=== PATIENT | male | born 1980 | race Caucasian/White ===

== ENCOUNTER 2017-01-04 12:04 | Inpatient (IN) | payer OTHER ==
[~2017-01-04] VITALS: Ht 170.2 cm; Wt 80.7 kg
[~2017-01-04 12:04] MED LIST: AMLODIPINE BESY10 MG PO; HYDROCHLOROTH12.5 M3 PO; KLONOPIN0.5 M1 PO; LEXAPRO10 MG PO; LEXAPRO20 MG PO; LO-DOSE ASPIRIN81 M2 PO; LOPRESSOR50 MG PO; NITROSTAT0.4 MG SL; WELLBUTRIN SR150 MG PO
[2017-01-04] MEDS ORDERED: TIZANIDINE HCL4 MG PO (12:50)
[2017-01-04 14:41] LABS: EOSINOPHIL (%) 0.7 % (0-5); EOSINOPHIL COUNT 0.1 K/uL (0-0.3); HEMATOCRIT 42.6 % (38.0-50.0); IMMATURE GRANULOCYTE (%) 0.4 % (0.0-0.7); INSTRUMENT ABS NEUTROPHIL CT 6.1 K/uL; LYMPHOCYTE COUNT 2.3 K/uL (1.0-2.8); MCH 31.4 PG (29.0-34.0); MCV 92.2 FL (86-99); MEAN PLAT.VOLUME 9.5 uM^3 (9.0-12.4); MONOCYTE (%) 6.2 % (3-12); MONOCYTE COUNT 0.6 K/uL (0-0.8); NEUTROPHIL (%) 66.8 % (45-76); NEUTROPHIL COUNT 6.1 K/uL (1.8-6.4); PLATELET COUNT 224 K/uL (156-360); RBC DIS.WIDTH-CV 13.3 % (11.8-14.6); RBC DIS.WIDTH-SD 45.2 % (39-53); RED BLOOD COUNT 4.62 M/uL (4.00-5.50); WHITE BLOOD COUNT 9.1 K/uL (4.1-10.2)
[2017-01-04 14:48] LABS: CHLORIDE 107 mEq/L (99-109); POTASSIUM 3.7 mEq/L (3.7-5.4); SODIUM 139 mEq/L (136-147)
[2017-01-04 14:51] LABS: GLUCOSE 94 mg/dL (70-99)
[2017-01-04 14:52] LABS: ANION GAP 9 MEQ/L (2-14)
[2017-01-04 14:53] LABS: TOTAL BILIRUBIN 0.6 mg/dL (0.0-1.0)
[2017-01-04 14:54] LABS: GFR ESTIMATE (CALCULATED) > 59 mL/min/; SERUM ETHYL ALCOHOL < 10 mg/dL
[2017-01-04 14:55] LABS: ALKALINE PHOSPHATASE 66 IU/L (3-129)
[2017-01-04 14:56] LABS: UREA NITROGEN (BUN) 9 mg/dL (9-23)
[2017-01-04 14:58] LABS: SALICYLATE < 5.0 MG/DL (15-30)
[2017-01-04 15:22] LABS: ADD MIUA? YES; BILIRUBIN NEGATIVE; BLOOD NEGATIVE; COLOR YELLOW ((YELLOW)); GLUCOSE (STRIP) NEGATIVE; KETONES NEGATIVE; LEUKOCYTES SMALL; NITRITE NEGATIVE; PROTEIN (STRIP) NEGATIVE; UROBILINOGEN 0.2 MG/DL (0.2-1.0)
[2017-01-04 15:48] LABS: AMPHETAMINE NEGATIVE (500 ng/mL); BACTERIA NONE SEEN /HPF; BARBITURATES NEGATIVE (200 ng/mL); BENZODIAZEPINES NEGATIVE (150 ng/mL); COCAINE NEGATIVE (150 ng/mL); EPITHELIAL CELLS RARE /HPF; METHADONE NEGATIVE (200 ng/mL); METHAMPHETAMINE NEGATIVE (500 ng/mL); MUCUS TRACE /LPF; OPIATES (MORPHINE) NEGATIVE (100 ng/mL); OXYCODONE NEGATIVE (100 ng/mL); PHENCYCLIDINE NEGATIVE (25 ng/mL); PROPOXYPHENE NEGATIVE (300 ng/mL); RED BLOOD CELLS 0-5 /HPF (0-5); THC CANNABINOIDS NEGATIVE (50 ng/mL); TRICYCLIC ANTIDEPRESSANTS NEGATIVE (300 ng/mL)
[2017-01-04 15:49] LABS: INTERNAL CONTROLS VALID? YES
[2017-01-04] MEDS ORDERED: DICLOFENAC SODI75 MG PO (17:22)
[2017-01-04] MEDS ORDERED: NARCAN4 MG NS (17:22)
[2017-01-05 07:34] VITALS: BP 130/86
[2017-01-05 15:28] VITALS: BP 113/77
[2017-01-06 07:32] VITALS: BP 113/69
== END 2017-01-06 11:30 | disposition home or self-care (01) | DRG 881 ==
LOC: EME 12:04 → 1WEST 15:23 → EDOF 15:23 → 1WEST 17:52
PROVIDERS: Emergency Medicine
DX: F32.9 Major depressive disorder, single episode, unspecified (principal); F11.10 Opioid abuse, uncomplicated; I10 Essential (primary) hypertension; F41.9 Anxiety disorder, unspecified
CPT/HCPCS: 71010; 80053; 81003; 85025; 97165 GO; 99281; 99285; G0480; J7030

== ENCOUNTER 2017-01-08 12:03 | Emergency (ER) | payer BC ==
[~2017-01-08] VITALS: Ht 170.2 cm; Wt 83.8 kg
[~2017-01-08 12:03] MED LIST changes: +DICLOFENAC SODI75 MG PO; +NARCAN4 MG NS; +TIZANIDINE HCL4 MG PO
[2017-01-08 13:29] LABS: ADD MIUA? NO; BILIRUBIN NEGATIVE; BLOOD NEGATIVE; COLOR YELLOW ((YELLOW)); GLUCOSE (STRIP) NEGATIVE; KETONES NEGATIVE; LEUKOCYTES NEGATIVE; NITRITE NEGATIVE; PROTEIN (STRIP) NEGATIVE; SPECIFIC GRAVITY 1.016 (1.000-1.030); UCUL ADDED? NO; UROBILINOGEN 0.2 MG/DL (0.2-1.0)
[2017-01-08 13:40] LABS: AMPHETAMINE NEGATIVE (500 ng/mL); BARBITURATES NEGATIVE (200 ng/mL); BENZODIAZEPINES NEGATIVE (150 ng/mL); COCAINE NEGATIVE (150 ng/mL); INTERNAL CONTROLS VALID? YES; METHADONE NEGATIVE (200 ng/mL); METHAMPHETAMINE NEGATIVE (500 ng/mL); OPIATES (MORPHINE) NEGATIVE (100 ng/mL); OXYCODONE NEGATIVE (100 ng/mL); PHENCYCLIDINE NEGATIVE (25 ng/mL); PROPOXYPHENE NEGATIVE (300 ng/mL); THC CANNABINOIDS PRESUMPTIVE POSITIVE (50 ng/mL); TRICYCLIC ANTIDEPRESSANTS NEGATIVE (300 ng/mL)
[2017-01-08 13:41] LABS: ADD MEDTOX COMMENT Y
[2017-01-08 14:09] LABS: EOSINOPHIL (%) 1.9 % (0-5); EOSINOPHIL COUNT 0.2 K/uL (0-0.3); HEMATOCRIT 43.3 % (38.0-50.0); IMMATURE GRANULOCYTE (%) 0.3 % (0.0-0.7); INSTRUMENT ABS NEUTROPHIL CT 4.3 K/uL; LYMPHOCYTE COUNT 2.4 K/uL (1.0-2.8); MCH 31.4 PG (29.0-34.0); MCHC 33.9 G/DL (30.0-36.0); MCV 92.5 FL (86-99); MEAN PLAT.VOLUME 9.5 uM^3 (9.0-12.4); MONOCYTE (%) 10.5 % (3-12); MONOCYTE COUNT 0.8 K/uL (0-0.8); NEUTROPHIL (%) 55.5 % (45-76); NEUTROPHIL COUNT 4.3 K/uL (1.8-6.4); PLATELET COUNT 178 K/uL (156-360); RBC DIS.WIDTH-CV 13.6 % (11.8-14.6); RBC DIS.WIDTH-SD 45.5 % (39-53); RED BLOOD COUNT 4.68 M/uL (4.00-5.50); WHITE BLOOD COUNT 7.7 K/uL (4.1-10.2)
[2017-01-08 14:21] LABS: CHLORIDE 105 mEq/L (99-109); POTASSIUM 3.8 mEq/L (3.7-5.4); SODIUM 137 mEq/L (136-147)
[2017-01-08 14:23] LABS: GLUCOSE 89 mg/dL (70-99)
[2017-01-08 14:24] LABS: ANION GAP 9 MEQ/L (2-14)
[2017-01-08 14:25] LABS: TOTAL BILIRUBIN 0.6 mg/dL (0.0-1.0)
[2017-01-08 14:26] LABS: SERUM ETHYL ALCOHOL < 10 mg/dL
[2017-01-08 14:27] LABS: ALKALINE PHOSPHATASE 63 IU/L (3-129); GFR ESTIMATE (CALCULATED) > 59 mL/min/
[2017-01-08 14:29] LABS: UREA NITROGEN (BUN) 9 mg/dL (9-23)
[2017-01-08 14:30] LABS: SALICYLATE < 5.0 MG/DL (15-30)
[2017-01-08 14:31] LABS: CREATINE KINASE 57 IU/L (1-294); TOTAL CK 57 IU/L (1-294)
[2017-01-08 14:39] LABS: CK-MB 0.5 ng/mL (0.0-4.9)
[2017-01-08 18:18] VITALS: BP 135/79
== END 2017-01-08 18:25 | disposition home or self-care (01) ==
LOC: EME 12:03
PROVIDERS: Emergency Medicine
DX: F32.9 Major depressive disorder, single episode, unspecified (principal); F12.10 Cannabis abuse, uncomplicated; R41.82 Altered mental status, unspecified; R25.3 Fasciculation; Z63.4 Disappearance and death of family member; I10 Essential (primary) hypertension
CPT/HCPCS: 70450; 80053; 81003; 82140; 82550; 82553; 83605; 84999; 85025; 90839; 95819; 99281; 99285; G0480